=== PATIENT | female | born 1965 | race Two or more races ===

== ENCOUNTER 2021-08-23 20:30 | Emergency (ER) | payer SELFPAY ==
[2021-08-23 20:39] VITALS: BP 136/79
[2021-08-24] MEDS ORDERED: HYDR-4902 PO (00:28)
[2021-08-24] MEDS ORDERED: IBUP800T27 PO (00:29)
[2021-08-24] MEDS ORDERED: HYDROcodone-ACET 10/325MG TAB PO ONE (00:30)
== END 2021-08-24 00:35 | disposition home or self-care (01) ==
LOC: ER 20:30
DX: S22.32XA Fracture of one rib, left side, initial encounter for closed fracture (principal); W11.XXXA Fall on and from ladder, initial encounter; Y93.89 Activity, other specified; Y92.89 Other specified places as the place of occurrence of the external cause; Y99.8 Other external cause status
CPT/HCPCS: 71101